=== PATIENT | male | born 1930 | race Caucasian/White ===

== ENCOUNTER 2016-06-08 17:29 | Emergency (ER) | payer OTHER ==
[2016-06-08 17:39] VITALS: BP 143/91; TEMP 98.3; BMI 29.8
[2016-06-08] MEDS ORDERED: LIDOCAINE 1 % AMP 5 ML (SUTURES) SUBCUT STA (17:41)
--- NOTE | 2016-06-08 18:32 | CT ---
EXAM: CT BRAIN HISTORY: Frontal head injury with laceration TECHNIQUE: CT brain without intravenous contrast. 5-mm axial sections with Reformations. COMPARISON: None FINDINGS: There is generalized atrophy. Probable mild chronic microvascular ischemic change. Brain otherwise is unremarkable without distinct evidence of hemorrhage or large vessel distribution recent ischemic infarction. There is no suggestion of acute hydrocephalus or subdural fluid collection. No mass o r mass effect. Cranium is within normal limits. Mastoid air cells are aerated. The visualized paranasal sinuses are clear. IMPRESSION: No acute intracranial process. No skull fracture.
--- NOTE | 2016-06-08 19:01 | CT ---
EXAM: CT cervical spine without contrast HISTORY: Neck injury TECHNIQUE: Multi-slice transaxial helical with coronal and sagittal reformatted views. COMPARISON: None FINDINGS: The intervertebral joint spaces are moderately narrowed at C4-C5 through C6-C7. There is minimal retrolisthesis of C4 on C5 of 1.6 mm. The bones are osteopenic. No acute fractures or lithe sis are observed. The prevertebral soft tissues have normal width. The facet alignment is appropria te. A 3.5-mm nodule is detected in the right upper lobe. Segmental analysis: C2-C3: A mild disc protrusion is suggested. The central canal diameter is mildly narrowed. The fac ets and uncovertebral joints are hypertrophic with minimal left neural foramen stenosis in the right neural foramen is maintained. C3-C4: A mild disc protrusion effaces the thecal sac and the central canal diameter is mildly narrow ed. The facets and uncovertebral joints are hypertrophic with minimal left neural foramen stenosis. Right neural foramen maintained. C4-C5: The retrolisthesis along with a disc spur complex effaces the cord and the central canal diam eter is mildly narrowed. The facets and uncovertebral joints are hypertrophic with moderate left gr eater right neural foramen stenosis. C5-C6: A mild disc spur complex effaces the thecal sac and the central canal diameter is mildly narr owed. The facets and uncovertebral joints are hypertrophic with moderate to severe bilateral neural foramen stenosis. C6-C7: A mild to spur complex effaces the thecal sac. Central canal diameter is maintained. The fa cets and uncovertebral joints are hypertrophic with severe right and moderate severe left neural for amen stenosis. C7-T1: No significant disc herniation, central canal stenosis, or neural foramen stenosis. IMPRESSION: 1. No acute fracture or lithesis. 2. Grade 1 retrolisthesis of C4 on C5 is likely degenerative etiology. 3. 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 4. Osteopenia. 5. Solid nodule right upper lobe measuring 3.5 mm. Please see followup comment below. Comment: [employer] Recommendations on Incidental Solid Pulmonary Nodule Follow-up: Low risk patient: (no history of smoking, cancer, or other known risk factors) < 6mm - no follow-u needed > 6-8mm - inital at 6-12 months, then 18-24 months if no change > 8mm - Consider CT, PET/CT, or biopsy at 3 months High risk patient: (history of smoking or other risk factors) < 6mm - optional CT at 12 months if suspicious morophology or upper lobe location > 6-8mm - initial CT at 6-12 months, then CT at 18-24 months > 8mm - same as low risk
[2016-06-08] MEDS ORDERED: BOOSTRIX IM ONE (19:03)
--- NOTE | 2016-06-08 19:18 | ED.PDOC ---
General ED Provider: Dr. NATALYA VEGA JR Chief Complaint: Head Injury Stated Complaint: at [employer] [facility]-walked out to car--foot caught on guard- - fell to concrete--no loc--lac to forehead and abrasion to left cheek--sl oozing of blood to wounds--alert and oriented[End]98.3 64 20 97% 143/91 03/02 fall/head injury[End] Time Seen by Physician: 17:40 Mode of Arrival: Wheelchair Information Source: Patient, Family Exam Limitations: No limitations (NOTE [place]) Primary Care Provider: JULIO BENTON Nursing and Triage Documentation Reviewed and Agree: No Review of Systems - Review Of Systems Constitutional: Reports: No symptoms Eyes: Reports: Decreased acuity (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 Denies: Neck pain Skin: Reports: No symptoms Neurological: Reports: No symptoms Endocrine: Reports: No symptoms Hematologic/Lymphatic: Reports: No symptoms All Other Systems: Other Past Medical History - Past Medical History Endocrine: Reports: Hypothyroid, Hyperthyroid Cardiovascular: Reports: Hypertension Respiratory: Reports: None Hematological: Reports: None Gastrointestinal: Reports: None Genitourinary: Reports: None Neuro/Psych: Reports: None Musculoskeletal: Reports: None Cancer: Reports: None - Surgical History General Surgical History: Reports: Cholecystectomy, Other (THYROID SURGERY) - Family History Family History: Reports: Unknown - Social History Smoking Status: Never smoker Hx Substance Use: No Alcohol Screening: None - Immunizations Tetanus Shot up to Date: (unsure) Physical Exam - Physical Exam Appearance: Well-appearing Pain Distress: Moderate Eyes: ARON (SLUGGISH NOTE HISTORY), EOMI, Conjunctiva clear ENT: Ears normal, Nose normal, Oropharynx normal Neck: Supple Respiratory: Airway patent, Breath sounds clear, Breath sounds equal, Respirations nonlabored Cardiovascular: RRR, Pulses normal, No rub, No murmur GI/: Soft, Nontender, No masses, Bowel sounds normal, No Organomegaly Musculoskeletal: Normal strength, ROM intact, No edema, No calf tenderness Skin: Warm, Dry, Normal color Neurological: Sensation intact, Motor intact, Reflexes intact, Cranial nerves intact, Alert, Oriented Psychiatric: Affect appropriate, Mood appropriate Procedures - Laceration/Wound Repair No standard instances Wound Description: Linear Wound Length (cm): 1CM X 3LAC Wound Explored: Clean Wound Irrigated: Yes Wound Prep: Peppericlens Anesthesia: Lidocaine Wound Debrided: Minimal Undermining: Minimal Wound Repaired With: Sutures Suture Size and Type: 4-0 NYLON FIGURE 8 X 3 Number of Sutures: 3 Sterile Dressing Applied?: Yes Splint Applied?: No Sling Applied?: No Critical Care Note - Critical Care Note Total Time (mins): 0 Course - Course Orders, Labs, Meds: Orders Category Date Time Status Diphth,Pertuss(Acell),Tet Vac [Boostrix] MEDS 06/08/16 19:03 Discontinued 0.5 ml IM .ONCE ONE Lidocaine HCl/Pf [Lidocaine 1 % Amp 5 ml (Sutures)] MEDS 06/08/16 17:41 Discontinued 5 ml SU[address]UT ONCE STA CT CERVICAL SPINE W/O CONTRAST Stat RADS 06/08/16 17:[address] HEAD W/O CONTRAST Stat RADS 06/08/16 17:40 Completed Medications Discontinued Medications Generic Name Dose Route Start Last Admin Trade Name Freq PRN Reason Stop Dose Admin Diphtheria/Pertussis/Tetanus Vacc 0.5 ml 06/08/16 19:03 06/08/16 19:11 Boostrix IM 06/08/16 19:04 0.5 ml .ONCE ONE Administration Lidocaine HCl 5 ml 06/08/16 17:41 06/08/16 19:01 Lidocaine 1 % Amp 5 Ml (Sutures) SUBCUT 06/08/16 17:42 5 ml ONCE STA Administration Vital Signs: Temp Pulse Resp BP Pulse Ox 06/08/16 17:29 98.3 F 64 20 143/91 H 97 Departure - Departure Time of Disposition: 19:28 Disposition: HOME SELF-CARE Discharge Problem: Injury of head, Laceration of face without complication Instructions: Head Injury (ED) Condition: Good Pt referred to PMD for follow-up: Yes Additional Instructions: CHECK HOURLY WHILE AWAKE AND EVERY 2 HOURS WHILE ASLEEP RETURN IF HEADACHE NAUSEA OR MENTAL CHANGES CHANGE BANDAGE DAILY AND IF BLEEDS THROUGH IF BLEEDS THROUGH THREE TIMES RETURN FOR RECHECK ANTIBIOTIC OINTMENT WITH DRESSING CHANGES SUTURES OUT IN 1 WEEK- INFORM THAT THEY ARE SINGLE FIGURE EIGHT SUTURES Prescriptions: Bacitracin 1 applic TP 2-4XD #1 pkg Allergies/Adverse Reactions: Allergies No Known Allergies Allergy (Verified 06/08/16 17:40) Home Medications: Ambulatory Orders Aspirin [Stephanie Chewable Aspirin] 02/25/14 Atorvastatin Calcium 10 mg PO 02/25/14 Bimatoprost [Lumigan] 02/25/14 Brimonidine Tartrate [Alphagan P] 02/25/14 Calcium Carbonate/Vitamin D3 [Calcium 600 + Vit D Caplet] 02/25/14 Doxazosin Mesylate [Cardura] 02/25/14 Levothyroxine Sodium [Synthroid] 02/25/14 Tamsulosin HCl [Tamsulosin HCl] 02/25/14 Vit D3 & K/Berberine HCl/Hops [Ostera Tablet] 1 each PO 02/25/14 Bacitracin 1 applic TP 2-4XD #1 pkg 06/08/16
== END 2016-06-08 19:44 | disposition home or self-care (01) ==
LOC: ED 17:29
DX: S01.81XA Laceration without foreign body of other part of head, initial encounter (principal); S00.81XA Abrasion of other part of head, initial encounter; S09.90XA Unspecified injury of head, initial encounter; W19.XXXA Unspecified fall, initial encounter; I10 Essential (primary) hypertension
CPT/HCPCS: 90471; 99283